=== PATIENT | male | born 1945 | race Two or more races ===

== ENCOUNTER 2017-04-28 08:30 | Outpatient (CLI) | payer MEDICARE, OTHER | END 2017-04-28 23:59 | disposition home or self-care (01) | LOC: WOU 08:30 | PROVIDERS: ATTEND Podiatrist Foot & Ankle Surgery | DX: M21.371 Foot drop, right foot (principal); E11.42 Type 2 diabetes mellitus with diabetic polyneuropathy; B35.1 Tinea unguium; L85.3 Xerosis cutis; I25.2 Old myocardial infarction; E78.5 Hyperlipidemia, unspecified; Z95.5 Presence of coronary angioplasty implant and graft; Z95.810 Presence of automatic (implantable) cardiac defibrillator | CPT/HCPCS: G0463 ==

== ENCOUNTER 2017-05-02 14:10 | Outpatient (CLI) | payer MEDICARE, OTHER | END 2017-05-02 23:59 | disposition home or self-care (01) | LOC: VASLAB 14:10 | PROVIDERS: ATTEND Surgery Vascular Surgery | DX: E11.51 Type 2 diabetes mellitus with diabetic peripheral angiopathy without gangrene (principal); E11.22 Type 2 diabetes mellitus with diabetic chronic kidney disease; N18.9 Chronic kidney disease, unspecified; E11.42 Type 2 diabetes mellitus with diabetic polyneuropathy; E78.5 Hyperlipidemia, unspecified; I25.10 Atherosclerotic heart disease of native coronary artery without angina pectoris; Z95.1 Presence of aortocoronary bypass graft; I25.2 Old myocardial infarction; Z95.0 Presence of cardiac pacemaker; Z85.46 Personal history of malignant neoplasm of prostate | CPT/HCPCS: G0463 ==